=== PATIENT | female | born 1995 | race Caucasian/White ===

== ENCOUNTER 2017-01-14 16:30 | Emergency (ER) | payer OTHER ==
[2017-01-14 16:35] VITALS: TEMP 99
--- NOTE | 2017-01-14 16:46 | EDPHY ---
HPI/HX/ROS/PE/MDM Narrative: CHIEF COMPLAINT: Suicidal ideation HPI: The patient is a 21 y/o female arriving voluntarily for mental health evaluation due to suicidal ideation. She describes a stressful living situation with her roommate this year and upon arriving home today she started cutting herself with a kitchen knife. She did not break the skin on her left arm. She called her boyfriend, who arrived and stopped her from harming herself further. Her parents brought her to the ED for evaluation. It sounds like she has a history of undiagnosed depression and denies prior attempts at self harm or suicidal ideation. No homicidal ideation. She denies ingestions or other injuries. REVIEW OF SYSTEMS: Aside from elements discussed in the HPI, a comprehensive 10-point review of systems was reviewed and is negative. PMH: Probable depression SOCIAL HISTORY: Lives in [place], [facility] living situation. Parents in [place]. PHYSICAL EXAM: General:Patient is alert, in no acute distress. ENT:Eyes are normal to inspection. ENT inspection normal. Neck: Normal inspection. Full range of motion. Respiratory:No respiratory distress. Breath sounds normal bilaterally. Cardiovascular: Regular rate and rhythm. Strong peripheral pulses. Normal cap refill. Abdomen:The abdomen is nontender to palpation. There are no peritoneal signs. Back: Normal to inspection. No tenderness to palpation. Skin: Normal color. No rash. Warm and dry. Extremities: Abrasion to left anterior elbow, otherwise normal appearance. Full range of motion. Neuro: Oriented x3. Normal motor function. Normal sensory function. ED Course: Plan for standard psychiatric labs. Once medically cleared, she will be evaluated by mental health. MDM: Patient medically clear. She was evaluated by Mental Health and at 2145 I was notified that oyster worker feels that patient is safe for discharge. Patient has a safety plan and will be given resources for mental health as an outpatient. He feels that patient is low risk for self harm and recommends discharge. - Data Points Laboratory Results: Laboratory Results 01/14/17 17:05 01/14/17 17:05 01/14/17 01/14/17 01/14/17 17:05 17:05 17:05 WBC 6.83 10^3/uL 10^3/uL (3.80-9.50) RBC 4.78 10^6/uL 10^6/uL (4.18-5.33) Hgb 10.4 g/dL L g/dL (12.6-16.3) Hct 34.7 % L % (38.0-47.0) MCV 72.6 fL L fL (81.5-99.8) MCH 21.8 pg L pg (27.9-34.1) MCHC 30.0 g/dL L g/dL (32.4-36.7) RDW 19.3 % H % (11.5-15.2) Plt Count 332 10^3/uL 10^3/uL (150-400) MPV 11.5 fL fL (8.7-11.7) Neut % (Auto) 72.4 % % (39.3-74.2) Lymph % (Auto) 20.6 % % (15.0-45.0) Dickens % (Auto) 6.0 % % (4.5-13.0) Eos % (Auto) 0.4 % L % (0.6-7.6) Baso % (Auto) 0.3 % % (0.3-1.7) Nucleat RBC Rel Count 0.0 % % (0.0-0.2) Absolute Neuts (auto) 4.94 10^3/uL 10^3/uL (1.70-6.50) Absolute Lymphs (auto) 1.41 10^3/uL 10^3/uL (1.00-3.00) Absolute Monos (auto) 0.41 10^3/uL 10^3/uL (0.30-0.80) Absolute Eos (auto) 0.03 10^3/uL 10^3/uL (0.03-0.40) Absolute Basos (auto) 0.02 10^3/uL 10^3/uL (0.02-0.10) Absolute Nucleated RBC 0.00 10^3/uL 10^3/uL (0-0.01) Immature Gran % 0.3 % % (0.0-1.1) Immature Gran # 0.02 10^3/uL 10^3/uL (0.00-0.10) Sodium 143 mEq/L mEq/L (134-144) Potassium 4.1 mEq/L mEq/L (3.5-5.2) Chloride 107 mEq/L mEq/L (97-110) Carbon Dioxide 22 mEq/l mEq/l (22-31) Anion Gap 14 mEq/L mEq/L (8-16) BUN 11 mg/dL mg/dL (7-23) Creatinine 0.8 mg/dL mg/dL (0.6-1.0) Estimated GFR > 60 Glucose 112 mg/dL H mg/dL (70-100) Calcium 9.6 mg/dL mg/dL (8.5-10.4) Beta HCG, Qual NEGATIVE Urine Opiates Screen Urine Barbiturates Ur Phencyclidine Scrn Ur Amphetamine Screen U Benzodiazepines Scrn Urine Cocaine Screen U Marijuana (THC) Screen 01/14/17 16:50 WBC RBC Hgb Hct MCV MCH MCHC RDW Plt Count MPV Neut % (Auto) Lymph % (Auto) Dickens % (Auto) Eos % (Auto) Baso % (Auto) Nucleat RBC Rel Count Absolute Neuts (auto) Absolute Lymphs (auto) Absolute Monos (auto) Absolute Eos (auto) Absolute Basos (auto) Absolute Nucleated RBC Immature Gran % Immature Gran # Sodium Potassium Chloride Carbon Dioxide Anion Gap BUN Creatinine Estimated GFR Glucose Calcium Beta HCG, Qual Urine Opiates Screen NEGATIVE (NEGATIVE) Urine Barbiturates NEGATIVE (NEGATIVE) Ur Phencyclidine Scrn NEGATIVE (NEGATIVE) Ur Amphetamine Screen NEGATIVE (NEGATIVE) U Benzodiazepines Scrn NEGATIVE (NEGATIVE) Urine Cocaine Screen NEGATIVE (NEGATIVE) U Marijuana (THC) Screen NEGATIVE (NEGATIVE) General Time Seen by Provider: 01/14/17 16:38 Initial Vital Signs: Initial Vital Signs Temperature (C) 37.2 C 01/14/17 16:32 Heart Rate 120 H 01/14/17 16:32 Respiratory Rate 20 01/14/17 16:32 Blood Pressure 114/80 01/14/17 16:32 O2 Sat (%) 98 01/14/17 16:32 O2 Delivery Mode Room Air Allergies/Adverse Reactions: No Known Allergies Allergy (Unverified 01/14/17 16:32) Home Medications: Medication Instructions Recorded NK [No Known Home Meds] 01/14/17 Departure - Departure Disposition: Home, Routine, Self-Care Clinical Impression: Suicidal ideation, Abrasion forearm Condition: Good Instructions: Suicide Prevention for Adults (ED) Additional Instructions: Follow-up with your mental health provider as directed. Return to the ED for thoughts of self-harm, racing thoughts or other concerns. Referrals: PAOLO DAVISON [Primary Care Provider] - As per Instructions Report Scribed for: Ascencion Pandey Report Scribed by: Mireille Blanca Date of Report: 01/14/17 Time of Report: 16:45 Physician Review and Approval Statement: Portions of this note were transcribed by an ED scribe. I personally performed the history, physical exam, and medical decision making; and confirm the accuracy of the information in the transcribed note.
[2017-01-14 17:13] LABS: % IMMATURE GRANULYOCYTES 0.3 % (0.0-1.1); ABSOLUTE IMMATURE GRANULOCYTES 0.02 10^3/uL (0.00-0.10); ADD DIFF? NO; ADD MORPH? NO; ADD SCAN? NO; ATYPICAL LYMPHOCYTE FLAG 0 (0-99); FRAGMENT RBC FLAG 60 (0-99); HEMATOCRIT 34.7 % (38.0-47.0); HEMOGLOBIN 10.4 g/dL (12.6-16.3); LEFT SHIFT FLG 0 (0-99); LIPEMIA HEMOLYSIS FLAG 80 (0-99); MEAN CELL HEMOGLOBIN 21.8 pg (27.9-34.1); MEAN CELL VOLUME 72.6 fL (81.5-99.8); MEAN PLATELET VOLUME 11.5 fL (8.7-11.7); PLATELET CLUMPS FLAG 0 (0-99); PLATELET COUNT 332 10^3/uL (150-400); RED BLOOD CELL COUNT 4.78 10^6/uL (4.18-5.33); RED CELL DISTRIBUTION WIDTH 19.3 % (11.5-15.2)
[2017-01-14 17:50] LABS: ANION GAP 14 mEq/L (8-16); CALCIUM 9.6 mg/dL (8.5-10.4); CARBON DIOXIDE 22 mEq/l (22-31); CHLORIDE 107 mEq/L (97-110); CREATININE 0.8 mg/dL (0.6-1.0); GLOMERULAR FILTRATION RATE > 60; GLUCOSE 112 mg/dL (70-100); POTASSIUM 4.1 mEq/L (3.5-5.2); SODIUM 143 mEq/L (134-144)
[2017-01-14 20:25] VITALS: O2SAT 97
[2017-01-14] MEDS ORDERED: LORazepam 1 MG TAB PO ONE (21:43)
[2017-01-14 21:59] VITALS: BP 109/80; PULSE 95; RESP 16
== END 2017-01-14 22:13 | disposition home or self-care (01) ==
DX: S50.812A Abrasion of left forearm, initial encounter (principal); X78.1XXA Intentional self-harm by knife, initial encounter
CPT/HCPCS: 80305